=== PATIENT | female | born 1990 | race Caucasian/White ===

== ENCOUNTER → 2017-07-23 | Emergency (ER) | payer OTHER ==
[~2017-07-23] VITALS: Ht 172.7 cm; Wt 77.1 kg
[~2017-07-23] MED LIST: FIORICET PO; REGLAN 10 MG PO; VOLTAREM 50 MG; ZYRTEC10 MG PO
== END | disposition home or self-care (01) ==
LOC: ER 13:24
DX: J11.1 Influenza due to unidentified influenza virus with other respiratory manifestations (principal); B34.9 Viral infection, unspecified

== ENCOUNTER → 2017-10-11 | Outpatient (CLI) | payer OTHER | END | disposition home or self-care (01) | LOC: PPHC 15:36 | DX: Z00.8 Encounter for other general examination (principal) ==

== ENCOUNTER 2017-10-26 06:10 | Day surgery (SDC) | payer OTHER | END 2017-10-26 09:35 | disposition home or self-care (01) | LOC: AMB-ENDOS 06:10 → LAB 16:05 | DX: K62.5 Hemorrhage of anus and rectum (principal); K64.1 Second degree hemorrhoids; Z12.11 Encounter for screening for malignant neoplasm of colon ==

== ENCOUNTER 2018-01-26 10:30 | Emergency (ER) | payer OTHER ==
[~2018-01-26] VITALS: Ht 175.3 cm; Wt 77.1 kg
[2018-01-26] MEDS ORDERED: BIOTIN10000 MCG (10:59)
== END 2018-01-26 13:04 | disposition home or self-care (01) ==
LOC: ER 10:30
DX: J06.9 Acute upper respiratory infection, unspecified (principal)

== ENCOUNTER 2018-04-08 07:11 | Emergency (ER) | payer OTHER ==
[~2018-04-08] VITALS: Ht 175.3 cm; Wt 77.1 kg
[~2018-04-08 07:11] MED LIST changes: +BIOTIN10000 MCG
== END 2018-04-08 08:40 | disposition home or self-care (01) ==
LOC: ER 07:11
DX: H10.11 Acute atopic conjunctivitis, right eye (principal)

== ENCOUNTER 2018-08-07 12:38 | Emergency (ER) | payer OTHER ==
[~2018-08-07] VITALS: Ht 175.3 cm; Wt 77.1 kg
== END 2018-08-07 19:20 | disposition home or self-care (01) ==
LOC: ER 12:38 → EDSEX 12:55 → ER 19:20
DX: N20.0 Calculus of kidney (principal); R10.31 Right lower quadrant pain

== ENCOUNTER → 2018-08-09 11:02 | Outpatient (CLI) | payer OTHER | END | disposition home or self-care (01) | LOC: LAB 11:02 → EDSEX 11:02 | DX: Z34.91 Encounter for supervision of normal pregnancy, unspecified, first trimester (principal) ==

== ENCOUNTER 2018-08-11 10:30 | Outpatient (CLI) | payer OTHER | END 2018-08-11 10:33 | disposition home or self-care (01) | LOC: EDSEX 10:30 → LAB 10:30 | DX: Z34.91 Encounter for supervision of normal pregnancy, unspecified, first trimester (principal) ==

== ENCOUNTER → 2018-08-13 08:59 | Outpatient (CLI) | payer OTHER | END | disposition home or self-care (01) | LOC: EDSEX 08:59 → LAB 08:59 | DX: Z34.91 Encounter for supervision of normal pregnancy, unspecified, first trimester (principal) ==

== ENCOUNTER → 2018-08-21 07:02 | Outpatient (CLI) | payer OTHER | END | disposition home or self-care (01) | LOC: LAB 07:02 | DX: E03.8 Other specified hypothyroidism (principal); D63.8 Anemia in other chronic diseases classified elsewhere; N30.90 Cystitis, unspecified without hematuria; E78.00 Pure hypercholesterolemia, unspecified; Z34.81 Encounter for supervision of other normal pregnancy, first trimester; B96.29 Other Escherichia coli [E. coli] as the cause of diseases classified elsewhere; Z11.4 Encounter for screening for human immunodeficiency virus [HIV] ==

== ENCOUNTER 2018-08-31 13:41 | Outpatient (CLI) | payer OTHER | END 2018-08-31 14:44 | disposition home or self-care (01) | LOC: LAB 13:41 | DX: Z34.91 Encounter for supervision of normal pregnancy, unspecified, first trimester (principal) ==

== ENCOUNTER 2018-09-15 10:27 | Emergency (ER) | payer OTHER ==
[~2018-09-15] VITALS: Ht 175.3 cm; Wt 77.1 kg
[2018-09-15] MEDS ORDERED: PRENATAL + DHA1 EAC1 (10:50)
[2018-09-15] MEDS ORDERED: FOLIC ACID0.4 MG (10:51)
== END 2018-09-15 19:59 | disposition home or self-care (01) ==
LOC: ER 10:27
DX: O20.0 Threatened abortion (principal)

== ENCOUNTER 2018-10-12 23:18 | Emergency (ER) | payer OTHER ==
[~2018-10-12] VITALS: Ht 175.3 cm; Wt 80.7 kg
[~2018-10-12 23:18] MED LIST changes: +FOLIC ACID0.4 MG; +PRENATAL + DHA1 EAC1
== END 2018-10-13 10:20 | disposition home or self-care (01) ==
LOC: ER 23:18
DX: O20.0 Threatened abortion (principal)

== ENCOUNTER 2018-10-17 06:45 | Inpatient (IN) | payer OTHER ==
[~2018-10-17] VITALS: Ht 175.3 cm; Wt 80.7 kg
== END 2018-10-21 09:00 | disposition home or self-care (01) | DRG 770 ==
LOC: LDR 06:45 → SURG-SUITE 10-18 19:40
PROVIDERS: Obstetrics & Gynecology; ADMIT Obstetrics & Gynecology Maternal & Fetal Medicine
PROC: 10D17ZZ Extraction of Products of Conception, Retained, Via Natural or Artificial Opening (ICD-10-PCS; principal; 2018-10-18 18:00)
DX: O03.4 Incomplete spontaneous abortion without complication (principal)

== ENCOUNTER 2018-10-19 18:39 | Inpatient (IN) | payer OTHER ==
[~2018-10-19] VITALS: Ht 175.3 cm; Wt 80.7 kg
== END 2018-10-21 10:42 | disposition home or self-care (01) | DRG 776 ==
LOC: LDR 18:39 → OB/GYN 18:39
PROVIDERS: ADMIT Obstetrics & Gynecology Maternal & Fetal Medicine
DX: O86.4 Pyrexia of unknown origin following delivery (principal)

== ENCOUNTER 2019-06-18 15:12 | Emergency (ER) | payer OTHER ==
[~2019-06-18] VITALS: Ht 170.2 cm; Wt 79.4 kg
== END 2019-06-18 17:41 | disposition home or self-care (01) ==
LOC: ER 15:12
DX: J11.1 Influenza due to unidentified influenza virus with other respiratory manifestations (principal); J15.7 Pneumonia due to Mycoplasma pneumoniae

== ENCOUNTER 2020-01-09 15:45 | Outpatient (CLI) | payer OTHER | END 2020-01-09 15:49 | disposition home or self-care (01) | LOC: LAB 15:45 | PROVIDERS: ATTEND General Practice | DX: R10.2 Pelvic and perineal pain (principal); M54.5 Low back pain ==

== ENCOUNTER 2020-04-07 13:00 | Outpatient (CLI) | payer OTHER | END 2020-04-07 18:44 | disposition home or self-care (01) | LOC: PPH VACUNA 13:00 | DX: Z23 Encounter for immunization (principal) ==